=== PATIENT | male | born 1940 | race African-American/Black ===

== ENCOUNTER 2017-09-06 14:39 | Inpatient (IN) | payer OTHER ==
[~2017-09-06] VITALS: Ht 167.6 cm; Wt 63.5 kg
[2017-09-06] MEDS ORDERED: EPINEPHRINE 0.1MG/ML (1:10,000) 10ML SYR ONE ×2 (14:54→15:01)
[2017-09-06] MEDS ORDERED: SODIUM BICARBONATE 7.5% 0.9 MEQ/ML 50ML SYR IV ONE ×2 (14:54→15:01)
[2017-09-06] MEDS ORDERED: ATROPINE SULFATE 1MG/10ML SYR ONE ×2 (14:54→15:01)
[2017-09-06] MEDS ORDERED: DEXTROSE 50% WATER 50ML SYRINGE IV ONE (14:54)
[2017-09-06] MEDS ORDERED: DOPAMINE 400MG PREMIX 250 ML IV ONE ×2 (16:21→16:30)
[2017-09-06] MEDS ORDERED: SODIUM CHLORIDE 0.9% 1000ML BAG (SEPSIS BOLUS) IV ONE (16:30)
[2017-09-06] MEDS ORDERED: PIPERACILLIN/TAZ 3.375G PREMIX 50 ML IV ONE (16:30)
[2017-09-06] MEDS ORDERED: NOREPINEPHRINE 4 MG in DEXT 5% WATER 246 ML IV ONE ×2 (16:30→18:00)
[2017-09-06] MEDS ORDERED: VANCOMYCIN 1 G PREMIX 200 ML IV ONE (16:30)
[2017-09-06 17:08] LABS: MEAN CORPUSCULAR HEMOGLOBIN 29.4 pg (28.0-32.0); MEAN CORPUSCULAR VOLUME 94.1 fL (80.0-94.0); MEAN PLATELET VOLUME 7.6 fl (7.4-10.4); PLATELET 145 x1000/uL (130-400); RED BLOOD CELL COUNT 2.36 mill/uL (4.7-6.1); RED CELL DISTRIBUTION WIDTH 19.4 % (11.6-14.6)
[2017-09-06 17:10] LABS: BG BASE EXCESS -5.3 mmol/L (-2.0-2.0); BG CARBOXYHEMOGLOBIN 0.2 % (0.5-1.5); BG DEOXYHEMOGLOBIN 0.1 % (0.0-5.0); BG FRACTION INSPIRED OXYGEN 100; BG HCO3 ACT 19.6 mmol/L (22.0-26.0); BG METHEMOGLOBIN 0.4 % (0.0-1.5); BG OXYGEN SATURATION 99.9 % (92.0-98.5); BG OXYHEMOGLOBIN 99.3 % (94.0-97.0); BG PCO2 35.4 mmHg (35.0-45.0); BG PH 7.361 (7.350-7.450); BG PO2 378.8 mmHg (75.0-100.0); BG SAMPLE SITE RIGHT RADIAL; BG TIDAL VOLUME(mL) 500 mL; BG TOTAL HEMOGLOBIN 7.8 g/dL (12.0-18.0); BG VENT MODE VENT - A/C; BG VENT RATE 14 set
[2017-09-06 17:10] LABS: CHLORIDE 105 mEq/L (98-107)
[2017-09-06 17:11] LABS: HEMOGLOBIN. 6.9 g/dL (14.0-18.0)
[2017-09-06 17:12] LABS: HEMATOCRIT. 22.2 % (42.0-52.0); INR 1.3
[2017-09-06 17:33] LABS: NUCLEATED RED BLOOD CELLS 1 /100 WBC; PLATELET ESTIMATE NORMAL
[2017-09-06] MEDS ORDERED: PROPOFOL 10MG/ML 100ML 100 ML IV SCH (17:45)
[2017-09-06 19:03] LABS: CLARITY URINE CLOUDY (CLEAR); COLOR URINE YELLOW (YELLOW); KETONES URINE NEGATIVE (NEGATIVE); LEUKOCYTE ESTERASE URINE 3+ (NEGATIVE); NITRITE URINE NEGATIVE (NEGATIVE); OCCULT BLOOD URINE 3+ (NEGATIVE); PROTEIN URINE 2+ (NEGATIVE); SPECIFIC GRAVITY URINE 1.012 (1.005-1.030); UROBILINOGEN URINE 0.2 E.U./dL (0.2-1.0)
[2017-09-06] MEDS ORDERED: ASPIRIN 300MG SUPP PR ONE (21:15)
[2017-09-06 23:05] VITALS: BP 77/54
[2017-09-06 23:07] VITALS: BP 77/54
[2017-09-06 23:33] VITALS: BP 64/43
[2017-09-06 23:45] VITALS: BP 83/54
[2017-09-07] VITALS (38 sets, daily range): BP systolic 53–109; BP diastolic 19–74
[2017-09-07] MEDS ORDERED: ONDANSETRON HCL 4MG/2ML VIAL IV PRN
[2017-09-07] MEDS ORDERED: DEXT 5%/0.9% NACL 1,000 ML IV SCH
[2017-09-07] MEDS: NOREPINEPHRINE 8 MG in DEXT 5% WATER 242 ML IV PRN ×2 (01:56→06:23)
[2017-09-07] MEDS: PHENYLEPHRINE 10 MG in DEXT 5% WATER 249 ML IV PRN ×2 (04:18→05:17)
[2017-09-07 05:57] LABS: CHLORIDE 104 mEq/L (98-107)
[2017-09-07 06:06] LABS: HEMATOCRIT. 32.5 % (42.0-52.0); HEMOGLOBIN. 9.9 g/dL (14.0-18.0); MEAN CORPUSCULAR HEMOGLOBIN 27.5 pg (28.0-32.0); MEAN CORPUSCULAR VOLUME 89.9 fL (80.0-94.0); MEAN PLATELET VOLUME 7.3 fl (7.4-10.4); PLATELET 139 x1000/uL (130-400); RED BLOOD CELL COUNT 3.62 mill/uL (4.7-6.1); RED CELL DISTRIBUTION WIDTH 22.1 % (11.6-14.6)
[2017-09-07] MEDS ORDERED: PHENYLEPHRINE 20 MG in DEXT 5% WATER 248 ML IV PRN (06:15)
[2017-09-07 07:58] LABS: NUCLEATED RED BLOOD CELLS 1 /100 WBC; PLATELET ESTIMATE NORMAL
[2017-09-07] MEDS ORDERED: PIPERACILLIN/TAZ 3.375G PREMIX 50 ML IV SCH (09:00)
[2017-09-07] MEDS ORDERED: ENOXAPARIN 40MG/0.4ML SYR SUBCUT SCH (09:00)
[2017-09-07] MEDS ORDERED: PANTOPRAZOLE SODIUM 40 MG/VIAL IV SCH ×2 (09:00)
[2017-09-07] MEDS ORDERED: SODIUM CHLORIDE 0.9% 1,000 ML IV SCH ×2 (09:00→09:14)
[2017-09-07] MEDS ORDERED: SODIUM CHLORIDE 0.9% 1,000 ML IV ONE (09:15)
[2017-09-07] MEDS ORDERED: IPRATROPIUM/ALBUTEROL 0.5-3(2.5)MG/3ML NEB HHN PRN (09:45)
[2017-09-07] MEDS ORDERED: PROPOFOL 10MG/ML 100ML 100 ML IV PRN (09:45)
[2017-09-07] MEDS ORDERED: PIPERACILLIN/TAZ 2.25G PREMIX 50 ML IV SCH (10:00)
[2017-09-07 10:10] LABS: BG BASE EXCESS -9.4 mmol/L (-2.0-2.0); BG CARBOXYHEMOGLOBIN 0.3 % (0.5-1.5); BG DEOXYHEMOGLOBIN 2.5 % (0.0-5.0); BG FRACTION INSPIRED OXYGEN 60; BG HCO3 ACT 14.1 mmol/L (22.0-26.0); BG METHEMOGLOBIN 0.2 % (0.0-1.5); BG OXYGEN SATURATION 97.5 % (92.0-98.5); BG PCO2 24.2 mmHg (35.0-45.0); BG PH 7.384 (7.350-7.450); BG PO2 112.2 mmHg (75.0-100.0); BG SAMPLE SITE RIGHT RADIAL; BG TIDAL VOLUME(mL) 500 mL; BG TOTAL HEMOGLOBIN 10.6 g/dL (12.0-18.0); BG VENT MODE VENT - A/C; BG VENT RATE 15 set
[2017-09-07 10:46] LABS: T4 FREE 1.58 ng/dL (0.76-1.46)
[2017-09-07] MEDS ORDERED: IPRATROPIUM/ALBUTEROL 0.5-3(2.5)MG/3ML NEB HHN SCH (12:00)
== END 2017-09-07 13:52 | disposition expired | DRG 871 ==
LOC: ER 14:51 → EDBEDREQ 16:25 → ENRESERV 22:06 → CVICU 09-07 00:15
PROVIDERS: ADMIT Hospitalist; ATTEND Hospitalist
PROC: 5A1935Z Respiratory Ventilation, Less than 24 Consecutive Hours (ICD-10-PCS; principal; 2017-09-07)
PROC: 5A12012 Performance of Cardiac Output, Single, Manual (ICD-10-PCS; 2017-09-07)
PROC: 0BH17EZ Insertion of Endotracheal Airway into Trachea, Via Natural or Artificial Opening (ICD-10-PCS; 2017-09-07)
PROC: 30233N1 Transfusion of Nonautologous Red Blood Cells into Peripheral Vein, Percutaneous Approach (ICD-10-PCS; 2017-09-07)
PROC: 06HY33Z Insertion of Infusion Device into Lower Vein, Percutaneous Approach (ICD-10-PCS; 2017-09-07)
DX: A41.9 Sepsis, unspecified organism (principal); E43 Unspecified severe protein-calorie malnutrition; I21.4 Non-ST elevation (NSTEMI) myocardial infarction; I49.01 Ventricular fibrillation; J96.00 Acute respiratory failure, unspecified whether with hypoxia or hypercapnia; G93.40 Encephalopathy, unspecified; R65.21 Severe sepsis with septic shock; K72.00 Acute and subacute hepatic failure without coma; N17.9 Acute kidney failure, unspecified; N39.0 Urinary tract infection, site not specified; I50.9 Heart failure, unspecified; E11.65 Type 2 diabetes mellitus with hyperglycemia; D64.9 Anemia, unspecified; I11.0 Hypertensive heart disease with heart failure; Z68.22 Body mass index [BMI] 22.0-22.9, adult
CPT/HCPCS: 36415; 36600; 70450; 71045; 80053; 80061; 81003; 82375; 82805; 82962; 83036; 83605; 83880; 84145; 84439; 84443; 84484; 85025; 85379; 85610; 86850; 86900; 86920; 87040; 87070; 87077; 87086; 87186; 93005; 93970; 94002; C9113; J0461; J1265; J1650; J2370; J2543; J3370; J3490; J7030; J7042; J7060; P9016